=== PATIENT | female | born 1940 ===

== ENCOUNTER 2020-01-17 08:16 | Emergency (ER) | payer OTHER ==
[~2020-01-17] VITALS: Ht 157.5 cm; Wt 54.4 kg
[2020-01-17] MEDS ORDERED: NEURONTIN300 MG PO (08:28)
[2020-01-17] MEDS ORDERED: RESTORIL30 M1 PO (08:29)
[2020-01-17] MEDS ORDERED: SEROPHENE50 MG PO (08:29)
[2020-01-17] MEDS ORDERED: ATIVAN0.5 M1 PO (08:29)
[2020-01-17] MEDS ORDERED: REMERON45 M1 PO (08:29)
[2020-01-17] MEDS ORDERED: LYSIPLEX PLUS178 ML PO (08:30)
[2020-01-17] MEDS ORDERED: APETIGEN P12.5 MG/15 PO (08:30)
[2020-01-17] MEDS ORDERED: SULFAMETHOXAZO1 EACH PO (16:02)
== END 2020-01-17 16:28 | disposition home or self-care (01) ==
LOC: ER 08:16
DX: E86.0 Dehydration (principal); R63.0 Anorexia; F32.89 Other specified depressive episodes